=== PATIENT | female | born 1990 | race Caucasian/White ===

== ENCOUNTER → 2017-09-14 | Outpatient (CLI) | payer OTHER ==
--- NOTE | 2017-09-14 13:20 | US ---
EXAMINATION TYPE: US abdomen complete DATE OF EXAM: 09/14/2017 COMPARISON: NONE CLINICAL HISTORY: R11.2 NON INTRACTABLE VOMITING AND NAUSEA. RUQ pain, vomiting, back pain EXAM MEASUREMENTS: Liver Length: 16.7 cm Gallbladder Wall: 0.4 cm CBD: 0.4 cm Spleen: 12.3 cm Right Kidney: 12.5 x 5.4 x 5.2 cm Left Kidney: 11.9 x 6.2 x 5.5 cm Technical limitations due to patient's body habitus and large amount of overlying bowel content Pancreas: Obscured by bowel gas Liver: attenuating Gallbladder: multiple stones Evidence for sonographic Webb's sign: no CBD: wnl as visualized Spleen: wnl Right Kidney: multiple dense echogenic areas noted, possible stones?, minimally dilated collecting s ystem Left Kidney: multiple dense echogenic areas noted, possible stones Upper IVC: limited evaluation Abd Aorta: visualized portions appear wnl, limited evaluation due to overlying bowel content There is no ascites. IMPRESSION: Exam is limited. Findings suggest hepatic steatosis or hepatocellular disease. Mild right -sided hydronephrosis, there may be some nephrolithiasis bilaterally. Cholelithiasis.
== END | disposition home or self-care (01) ==
LOC: RADUSWWP 12:03
PROVIDERS: ATTEND Internal Medicine
DX: N13.30 Unspecified hydronephrosis (principal); K80.20 Calculus of gallbladder without cholecystitis without obstruction
CPT/HCPCS: 76700

== ENCOUNTER → 2017-11-10 | Outpatient (CLI) | payer OTHER ==
--- NOTE | 2017-11-10 13:18 | XR ---
EXAMINATION TYPE: XR hand complete LT DATE OF EXAM: 11/10/2017 CLINICAL HISTORY: Fall with subsequent left hand injury. TECHNIQUE: Frontal, lateral and oblique images of the left hand are obtained. The a and p technician notes d ifficulty in positioning due to left-sided paralysis. COMPARISON: None. FINDINGS: There is no acute fracture/dislocation evident in the left hand. The joint spaces in the l eft hand appear within normal limits. The overlying soft tissue appears unremarkable. IMPRESSION: There is no acute fracture or dislocation in the left hand.
== END | disposition home or self-care (01) ==
LOC: RADXRYALE 12:36
PROVIDERS: ATTEND Internal Medicine
DX: M79.642 Pain in left hand (principal)

== ENCOUNTER 2019-06-22 19:23 | Emergency (ER) | payer OTHER ==
--- NOTE | 2019-06-22 20:25 | XR ---
PROCEDURE: XR wrist complete LT - 4V DATE AND TIME: 06/22/2019 8:02 PM CLINICAL INDICATION: PHH; pain after fall TECHNIQUE: Department protocol COMPARISON: 11/10/2017 FINDINGS: The radius shows an apex lateral and dorsal comminuted fracture of the distal radial shaft, with involvement of the radiocarpal and DRUJ joints evident. There is a vertically oriented mildly displaced distal ulnar intra-articular fracture. The scaphoid appears fracture/dislocation. There is marked soft tissue swelling circumferential to the distal forearm and wrist. IMPRESSION: DISTAL RADIAL AND ULNAR FRACTURES, AND SCAPHOID FRACTURE.
[2019-06-22] MEDS ORDERED: KETOROLAC 30 MG/ML 1 ML VIAL IM STA (21:50)
[2019-06-22] MEDS ORDERED: HYDROcodone/APAP 5-325MG 1 EACH TAB PO STA (21:50)
[2019-06-22] MEDS ORDERED: LIDOCAINE 1% INJ 10MG/ML (20 ML MDV) SQ ONE (22:10)
--- NOTE | 2019-06-23 00:29 | XR ---
EXAMINATION TYPE: XR wrist complete LT DATE OF EXAM: 06/23/2019 COMPARISON: Yesterday HISTORY: Post reduction TECHNIQUE: 3 views FINDINGS: There is oblique angulated fracture of the distal radial metaphysis. There is transverse fr acture distal ulna metaphysis. There is persistent posterior angulation at the radius fracture site. There is significant anterior displacement of the distal ulna fragment. IMPRESSION: Displacement and angulation of the fractures appears worse than the initial exam.
[2019-06-23 01:24] VITALS: BP 125/86; PULSE 90; RESP 17; TEMP 98.2
--- NOTE | 2019-06-23 02:05 | ED ---
Upper Extremity HPI - General Chief Complaint: Extremity Injury, Upper Stated Complaint: Fall L Arm Injury Time Seen by Provider: 06/22/19 21:26 Source: patient Mode of arrival: ambulatory Limitations: no limitations - History of Present Illness Initial Comments: 29-year-old female patient presents to the emergency department today for evaluation of left wrist discomfort and swelling. Patient states just prior to arrival she experienced a fall backwards causing an injury to the arm. Patient is deaf and also has cerebral palsy to the left arm. Mother states there is some minor deformity at the wrist level on a regular basis. Patient is reporting significant discomfort and pain to the left wrist. Denies numbness or tingling to the fingers. She denies hitting her head or losing consciousness with the fall. Denies any other injuries. Patient denies any headache, neck pain, back pain, chest pain, shortness of breath, dizziness, weakness, abdominal pain, nausea, vomiting, or difficulties with bowel movements or urination. - Related Data Allergies Allergy/AdvReac Type Severity Reaction Status Date / Time No Known Allergies Allergy Verified 06/22/19 19:48 Review of Systems ROS Statement: Those systems with pertinent positive or pertinent negative responses have been documented in the HPI. ROS Other: All systems not noted in ROS Statement are negative. Past Medical History Additional Past Medical History / Comment(s): cererbral palsy, deaf History of Any Multi-Drug Resistant Organisms: None Reported Past Surgical History: Cholecystectomy Smoking Status: Never smoker Past Alcohol Use History: None Reported Past Drug Use History: None Reported General Exam Limitations: language barrier (Patient is deaf) General appearance: alert, in no apparent distress Eye exam: Present: normal appearance, PERRL, EOMI. Absent: scleral icterus, conjunctival injection, periorbital swelling Neck exam: Present: normal inspection, full ROM, other (Nontender, no step-off, no deformity to firm midline palpation of the posterior cervical spine. Full range of motion without pain or limitation.). Absent: tenderness, meningismus, lymphadenopathy Respiratory exam: Present: normal lung sounds bilaterally. Absent: respiratory distress, wheezes, rales, rhonchi, stridor Cardiovascular Exam: Present: regular rate, normal rhythm, normal heart sounds. Absent: systolic murmur, diastolic murmur, rubs, gallop, clicks GI/Abdominal exam: Present: soft, normal bowel sounds. Absent: distended, tenderness, guarding, rebound, rigid Extremities exam: Present: full ROM, tenderness (Tenderness over the distal forearm and wrist.), normal capillary refill, other (There is significant soft tissue swelling noted over the left dorsal forearm and the wrist. Skin to the arm is otherwise pink, warm, dry. Cap refills less than 3 seconds. Radial pulses are 2+ and equal bilaterally). Absent: normal inspection, pedal edema, joint swelling, calf tenderness Back exam: Present: normal inspection, other (Nontender, no step-off, no def ormity to firm midline palpation of the thoracic and lumbar vertebrae. Full range of motion without pain or limitation.). Absent: vertebral tenderness Neurological exam: Present: alert, oriented X3, CN II-XII intact Psychiatric exam: Present: normal affect, normal mood Skin exam: Present: warm, dry, intact, normal color. Absent: rash Course Vital Signs 06/22/19 06/23/19 19:43 01:23 Temperature 99.4 F 98.2 F Pulse Rate 108 H 90 Respiratory 18 17 Rate Blood Pressure 161/94 125/86 O2 Sat by Pulse 98 98 Oximetry Medical Decision Making - Medical Decision Making 29-year-old female patient presented to the emergency department today for evaluation of left wrist pain and swelling. Physical examination did reveal mild deformity, significant soft tissue swelling, and tenderness over the left wrist and distal forearm. Patient is neurovascularly intact. Patient no other injuries from the fall. X-rays were obtained and revealed a distal ulnar and radial fracture. Radial fracture is angulated and comminuted. There is also evidence for scaphoid fracture. Hematoma block with reduction was attempted, repeat x-ray showed no improvement of the angulation. I discussed the case with on-call orthopedics Wenceslao Esquivel PA-c who recommended transfer to [facility] for further evaluation and higher level of care. Patient family are agreeable with this plan. Did discuss the case with on-call orthopedic surgeon at [facility] Dr. Worthy who accepts the transfer. Patient be transferred to the ER. - Radiology Data Radiology results: report reviewed, image reviewed 3 views of the left wrist obtained. Report was reviewed in its entirety. Impression by Dr. Jeimy Gooden shows distal radial ulnar fractures, and scaphoid fracture. Limited x-ray of the left wrist is obtained. Report was reviewed in its entirety. Impression by Dr. Bird shows displaced and angulation of the fractures appear worsening initial exam. Disposition Clinical Impression: Fracture of left radius and ulna, Fracture of scaphoid of left wrist Disposition: OTHER INSTITUTION NOT DEFINED Condition: Serious Referrals: Blas Ruiz DO [Primary Care Provider] - 1-2 days - Out of Hospital Transfer - Req. Specs Out of Hospital Transfer - Requested Specifics: Other Emergency Center ([facility])
--- NOTE | 2019-06-23 03:38 | ED ---
Disposition Clinical Impression: Fracture of left radius and ulna, Fracture of scaphoid of left wrist Disposition: OTHER INSTITUTION NOT DEFINED Condition: Serious Referrals: Blas Riuz DO [Primary Care Provider] - 1-2 days - Out of Hospital Transfer - Req. Specs Out of Hospital Transfer - Requested Specifics: Other Emergency Center ([facility]) Procedures - Orthopedic Fracture Reduction Fracture #1 Consent Obtained: verbal consent Side: left Fracture Reduction Location: radius Analgesia: hematoma block Technique: direct manipulation, traction/counter-traction Post Reduction X-rays Demonstrate: other (No improvement) Post-Reduction Neuro Exam: intact Post-Reduction Vascular Exam: intact Splint Applied: Yes Patient Tolerated Procedure: well - Orthopedic Splinting/Casting Injury #1 Side: left Upper Extremity Injury Location: long arm Upper Extremity Immobilizer: sugar tong splint, thumb spica, Ryan wrap Additional Comments: Skin to the fingers after swelled defecation is pink, warm, dry. Cap refills less than 3 seconds. Patient denies numbness or tingling.
== END 2019-06-23 02:15 | disposition other institution (70) ==
LOC: EC 19:23 → EEVIPCON 19:23 → EC 06-23 02:15
DX: S52.592A Other fractures of lower end of left radius, initial encounter for closed fracture (principal); S52.692A Other fracture of lower end of left ulna, initial encounter for closed fracture; S62.002A Unspecified fracture of navicular [scaphoid] bone of left wrist, initial encounter for closed fracture; G80.9 Cerebral palsy, unspecified; H91.90 Unspecified hearing loss, unspecified ear; W18.30XA Fall on same level, unspecified, initial encounter
CPT/HCPCS: 73110 ×2; 96372; 99284; 25605; J2001; J1885

== ENCOUNTER → 2019-10-12 | Outpatient (CLI) | payer OTHER ==
--- NOTE | 2019-10-12 09:55 | XR ---
EXAMINATION TYPE: XR wrist complete LT DATE OF EXAM: 10/12/2019 COMPARISON: 06/23/2019 HISTORY: 29-year-old female with left wrist pain, follow-up fracture TECHNIQUE: 3 views FINDINGS: Interval placement of volar plate and screw fixation across the patient's distal radial metadiaphysea l fracture. Some persistent slight 3 mm of dorsal cortical step-off on the lateral view. Some endoste al bridging seems to be present but the fixation plate largely obscures the view. Periosteal callous at the patient's ulnar head/neck fracture. There is some associated lucency that may reflect continue d movement. IMPRESSION: 1. Interval volar plate and screw fixation across the distal radius. 3 mm of dorsal cortical step-off remains. There seems to be some endosteal bony bridging but the fixation plate largely obscures the view. 2. Persistent lucency at the ulnar head/neck fracture margin could represent continued movement and i ncomplete healing. Some bridging periosteal callus is noted.
== END | disposition home or self-care (01) ==
LOC: RADXRYALE 09:26
PROVIDERS: ATTEND Physician Assistant
DX: M25.732 Osteophyte, left wrist (principal); Z98.890 Other specified postprocedural states

== ENCOUNTER → 2019-12-29 | Outpatient (CLI) | payer OTHER ==
--- NOTE | 2019-12-29 14:47 | XR ---
EXAMINATION TYPE: XR wrist complete LT DATE OF EXAM: 12/29/2019 COMPARISON: 10/12/2019 HISTORY: Left wrist fracture TECHNIQUE: Three-view left wrist FINDINGS: Plate and screws from an open reduction internal fixation of the distal radial fracture is evident. No displaced fractures are evident. The previous diastases is not as well-visualized current positioning. There appears to be healing ulnar fracture. Diffuse soft tissue swelling is over the wr ist. IMPRESSION: 1. Appears to be normal interval healing of distal radial and ulnar fractures. 2. Diffuse soft tissue swelling
== END | disposition home or self-care (01) ==
LOC: RADXRYALE 09:23
PROVIDERS: ATTEND Physician Assistant
DX: S62.92XG Unspecified fracture of left hand, subsequent encounter for fracture with delayed healing (principal)

== ENCOUNTER → 2020-12-23 | Outpatient (CLI) | payer OTHER ==
--- NOTE | 2020-12-23 08:55 | XR ---
EXAMINATION TYPE: XR ankle complete LT DATE OF EXAM: 12/23/2020 COMPARISON: NONE HISTORY: Pain TECHNIQUE: 3 views of the left ankle are submitted for evaluation. FINDINGS: There is no evidence for fracture or dislocation. Ankle mortise is intact. Soft tissues are within normal limits. IMPRESSION: 1. No evidence for acute fracture.
== END | disposition home or self-care (01) ==
LOC: RADXRYALE 08:36
PROVIDERS: ATTEND Physician Assistant Medical
DX: M25.572 Pain in left ankle and joints of left foot (principal)

== ENCOUNTER → 2024-03-07 | Outpatient (CLI) | payer OTHER ==
--- NOTE | 2024-03-07 17:23 | XR ---
EXAMINATION TYPE: XR ankle complete LT DATE OF EXAM: 03/07/2024 4:29 PM COMPARISON: 3 views CLINICAL INDICATION: Female, 33 years old with history of [id number] LOWER LEG PAIN, SWELLING, , FINDINGS: Prominent dorsal soft tissue swelling of the visualized foot. Additional circumferential soft tissue swelling at the ankle. Ankle mortise appears congruent with preservation of the distal tibiofibular o verlap. Talar dome appears intact. Small delineation to the Achilles tendon. No acute fracture, sublu xation, dislocation. IMPRESSION: Diffuse soft tissue swelling. No acute osseous abnormality seen. [facility], , 03/07/2024 5:21 PM
== END | disposition home or self-care (01) ==
LOC: RADXRYALE 16:12
PROVIDERS: ATTEND Physician Assistant Medical
DX: R22.42 Localized swelling, mass and lump, left lower limb (principal)

== ENCOUNTER → 2024-03-08 | Outpatient (CLI) | payer OTHER ==
--- NOTE | 2024-03-08 11:52 | US ---
EXAMINATION TYPE: US venous doppler duplex LE LT DATE OF EXAM: 03/08/2024 11:32 AM COMPARISON: NONE CLINICAL INDICATION: Female, 33 years old with history of [id number] PAIN IN LEFT LOWER LEG; pain in left lower leg approx- 1 week, swelling for 1 week TECHNIQUE: The lower extremity deep venous system is examined utilizing real time linear array sonog carey with graded compression, color doppler sonography, and spectral doppler. SIDE PERFORMED: Left FINDINGS: VESSELS IMAGED: Common Femoral Vein Deep Femoral Vein Greater Saphenous Vein * Femoral Vein Popliteal Vein Small Saphenous Vein * Proximal Calf Veins (* superficial vessels) Seafood Team Member notes: Limited due to swelling Left Leg: Negative for DVT, Color Doppler imaging shows patency of the vessels. Spectral waveforms a re within normal limits. Limited Lt calf veins due to edema in lower calf IMPRESSION: Some limitation in assessment at the level of the calf due to some soft tissue edema. Otherwise, no e vidence for DVT within the left lower extremity from the groin to just below the knee. [facility], , 03/08/2024 11:50 AM
== END | disposition home or self-care (01) ==
LOC: RADUSWWP 10:58
PROVIDERS: ATTEND Family Medicine
DX: R22.42 Localized swelling, mass and lump, left lower limb (principal); M79.662 Pain in left lower leg

== ENCOUNTER → 2024-08-07 | Outpatient (CLI) | payer OTHER ==
--- NOTE | 2024-08-07 13:50 | US ---
EXAMINATION TYPE: US arterial LE single level DATE OF EXAM: 08/07/2024 1:30 PM COMPARISONS: None. CLINICAL INDICATION: Female, 34 years old with history of R06.02 SOB, R23.0 Cyanosis, R60.9 Edema; ce rebral palsy and deaf, blue skin tone on the left, edema. Pain. TECHNIQUE: Systolic pressures were taken of the upper and lower extremity arteries with ankle-brachia l indices and toe brachial indices calculated bilaterally. History of: Smoker: n Hypertension: n Diabetic: n Hyperlipidemia: n TIA/CVA: n Previous Vascular Surgery: n CAD: n SC: n Vascular Ulcers: n Claudication: n Gangrene: n FINDINGS: Doppler Waveforms: Right: Multiphasic Left: Multiphasic Brachial Artery systolic pressure: Right: 149 Left: 164 Posterior Tibial artery systolic pressure: Right: 191 Left: 172 Dorsalis Pedis artery systolic pressure: Right: 156 Left: 162 Ankle-Brachial Indices: Right: 1.2 Left: 1.1 IMPRESSION: YOLANDA: Right: Normal 0.9 - 1.4, Recommendation: None Left: Normal 0.9 - 1.4, Recommendation: None [facility], , 08/07/2024 1:48 PM
--- NOTE | 2024-08-07 15:50 | CA ---
Transthoracic Echo Report Name: Loreta Anthony Age: 34 Gender: F : 1990 Exam Date: 08/07/2024 13:45 Exam Location: [facility] Ht (in): 64 Wt (lb): 235 Ordering Physician: Blas Ruiz DO Attending/Referring Phys: Ruby Peraza PAC Camera Repair Technician Kita Huston RDCS Procedure CPT: Indications: R06.02 SOB, R23.0 Cyanosis, R60.9 Edema Cardiac Hx: Technical Quality: Good Contrast 1: Total Dose (mL): Contrast 2: Total Dose (mL): MEASUREMENTS (Male / Female) Normal Values 2D ECHO LV Diastolic Diameter PLAX 5.6 cm 4.2 - 5.9 / 3.9 - 5.3 cm LV Systolic Diameter PLAX 3.7 cm IVS Diastolic Thickness 1.0 cm 0.6 - 1.0 / 0.6 - 0.9 cm LVPW Diastolic Thickness 1.0 cm 0.6 - 1.0 / 0.6 - 0.9 cm LV Relative Wall Thickness 0.4 LVOT Diameter 2.0 cm LA Systolic Diameter LX 3.2 cm 3.0 - 4.0 / 2.7 - 3.8 cm DOPPLER MV Area PHT 3.7 cm??? Mitral E Point Velocity 69.1 cm/s Mitral A Point Velocity 85.9 cm/s Mitral E to A Ratio 0.8 MV Deceleration Time 206.0 ms TR Peak Velocity 140.5 cm/s TR Peak Gradient 7.9 mmHg FINDINGS Left Ventricle Left ventricular ejection fraction is estimated at 60-65%. Normal left ventricular systolic function with no obvious regional wall motion abnormalities. Right Ventricle Normal right ventricular size and function. Right ventricular systolic pressure within normal limits. Right Atrium Normal right atrial size. Left Atrium Normal left atrial size. Mitral Valve Structurally normal mitral valve. No mitral stenosis, regurgitation or prolapse. Aortic Valve Trileaflet aortic valve. No aortic valve stenosis or regurgitation. Tricuspid Valve Structurally normal tricuspid valve. No tricuspid stenosis. Trace tricuspid regurgitation. Pulmonic Valve Pulmonic valve not well visualized. No pulmonic stenosis. No pulmonic regurgitation. Pericardium No pericardial effusion. Aorta Aortic annulus normal. CONCLUSIONS Left ventricular ejection fraction 60 to 65% Trace tricuspid regurgitation No mitral regurgitation No pericardial effusion Previewed by: Dr. Dima Ledbetter DO (Electronically Signed) Final Date: 07 August 2024 15:49
== END | disposition home or self-care (01) ==
LOC: RADUSWWP 13:01
PROVIDERS: ATTEND Family Medicine
DX: I36.1 Nonrheumatic tricuspid (valve) insufficiency (principal); R23.0 Cyanosis; R60.0 Localized edema; H91.90 Unspecified hearing loss, unspecified ear
CPT/HCPCS: 93306; 93922

== ENCOUNTER → 2024-08-15 | Outpatient (CLI) | payer OTHER ==
--- NOTE | 2024-08-15 13:55 | XR ---
EXAMINATION TYPE: XR hand complete LT DATE OF EXAM: 08/15/2024 1:47 PM INDICATION: Patient age:Female; 34 years old; Reason for study: [id number] LT HAND PAIN; [facility]. pain COMPARISON: Multiple left wrist radiographs with most recent 12/29/2019, left hand radiograph 11/10/2017 TECHNIQUE: Frontal, lateral and oblique views of the left hand were obtained. FINDINGS: Normal alignment of the visualized joints. No acute osseous pathology is identified. No e vidence of soft tissue swelling. Postsurgical changes with fixation plate involving the distal radius . Healed distal ulnar fracture. IMPRESSION: 1. No acute osseous pathology. 2. Postfixation changes of the distal radius. [facility], , 08/15/2024 1:53 PM
== END | disposition home or self-care (01) ==
LOC: RADXRYALE 13:32
PROVIDERS: ATTEND Physician Assistant Medical
DX: M79.642 Pain in left hand (principal); Z98.890 Other specified postprocedural states; W01.0XXA Fall on same level from slipping, tripping and stumbling without subsequent striking against object, initial encounter